=== PATIENT | female | born 1985 | race Caucasian/White ===

== ENCOUNTER 2016-08-13 20:50 | Emergency (ER) | payer OTHER ==
[~2016-08-13] VITALS: Ht 157.5 cm; Wt 88.5 kg
[2016-08-13 21:25] LABS: ABSOLUTE BASOPHIL COUNT 0.1 /CUMM (0.0-0.2); ABSOLUTE EOSINOPHIL COUNT 0.5 /CUMM (0.0-0.7); ABSOLUTE GRANULOCYTE CT 6.5 /CUMM (1.4-6.5); ABSOLUTE LYMPH COUNT 3.4 /CUMM (1.2-3.4); ABSOLUTE MONOCYTE COUNT 0.9 /CUMM (0.10-0.60); BASOPHIL % 0.6 % (0.0-2.0); EOSINOPHIL % 4.8 % (0-5); GRANULOCYTE % 56.9 % (42.2-75.2); HEMATOCRIT 41.8 % (37-47); MEAN CORPUSCULAR HGB 30.5 PG (27.0-31.0); MEAN CORPUSCULAR VOLUME 89.7 FL (81.0-99.0); MEAN PLATELET VOLUME 8.4 FL (7.4-10.4); PLATELET COUNT 257 /CUMM (130-400); RBC DISTRIBUTION WIDTH 12.1 % (11.5-14.5); RED BLOOD CELL CT 4.66 /CUMM (4.20-5.40); WHITE BLOOD CELL COUNT 11.4 /CUMM (4.8-10.8)
--- NOTE | 2016-08-13 22:20 | ED GENERAL ADULT ---
History of Present Illness General Chief Complaint: General Adult Stated Complaint: " AT HOME BP HIGH 169/109" Source: patient, old records Exam Limitations: no limitations Vital Signs & Intake/Output Vital Signs & Intake/Output Vital Signs Date Time Temp Pulse Resp B/P Pulse O2 O2 Flow FiO2 Ox Delivery Rate 08/13 2353 156/70 08/13 2329 97.4 70 19 154/59 97 Room Air 08/13 2317 62 166/72 08/13 2304 68 175/78 08/13 2304 70 170/114 08/13 2300 69 186/120 08/13 2258 97.5 78 18 228/110 08/13 2231 98 Room Air 08/13 2227 78 18 228/110 98 Room Air 08/13 2225 230/112 08/13 2100 97.5 80 18 180/124 97 Room Air ED Intake and Output 08/14 0000 08/13 1200 Intake Total Output Total Balance Patient 195 lb Weight Allergies Coded Allergies: NO KNOWN ALLERGIES (02/10/12) Triage Note: PT TO ED FOR HTN, PALPITATIONS, HEADACHE STARTING TODAY. PT HAS MPGN TYPE 3 AND ALSO HX OF HTN, ON METOPROLOL AND AMPLODIPINE AT HOME, REPORTS SHE FELT OFF ALL DAY TODAY, TOOK BP AT WORK AND THEN AT HOME AND BP WAS 160/109, TOOK MEDS TODAY PRESCRIBED. Triage Nurses Notes Reviewed? yes Onset: Abrupt Duration: day(s): (1), constant Timing: recent history Injury Environment: home Severity: mild, moderate Severity Numbers: 7 No Modifying Factors: none Associated Symptoms: denies HPI: 31 year old female iwth history of Membranoproliferative glomerulonephritis, hypertension presents emergency room complaining of a generalized headache associated with not feeling well since today. She states she had a coworker check her blood pressure and it was high. She is been compliant with her labetalol amlodipine and enalapril during the week however states that occasionally over the weekends she does not take her medication. The nausea vomiting diarrhea chest pain shortness of breath there's been no recent fall or head trauma no vision changes. The symptoms came on while at rest. No history of migraines in the past no fever no chills no rhinorrhea congestion or cough. There are no modifying factors or associated symptoms otherwise she did take her blood pressure medication today. (LISBETH CHEUNG,JAVIER) Past History Travel History Traveled to [place] past 21 day No Medical History Any Pertinent Medical History? see below for history Cardiovascular: hypertension Renal: Membranoproliferative glomerulonephritis Surgical History Surgical History: non-contributory Psychosocial History What is your primary language Malagasy Family History Hx Contributory? No (JAVIER HURTADO) Review of Systems Review of Systems Constitutional: Reports: see HPI. All Other Systems: Reviewed and Negative Comments Review of systems: See HPI, All other systems negative. Constitutional, no chills no fever, no malaise HEENT: No visual changes no sore throat no congestion, Cardiovascular: No chest pain , no palpitation Skin, no rashes, no change in skin Respiratory: No dyspnea no cough no sputum GI: No nausea no vomiting, no diarrhea, : No dysuria Muscle skeletal: No joint pain, no back pain, no neck pain, Neurologic: No numbness, no headache Psych: No stress Heme/endocrine: No bruising no bleeding Immunology: No lymphadenopathy (JAVIER HURTADO) Physical Exam Physical Exam General Appearance: well developed/nourished, no apparent distress, alert, awake Comments: Well-developed well-nourished person in no acute distress HEENT: Normal EENT exam; PERRL, EOMI, no nystagmus. No papilledema HEAD is atraumatic. moist mucous membranes. Neck: Supple, normal range of motion Back: Nontender, no CVA tenderness. Full range of motion Cardiovascular: Regular rate and rhythms no murmurs rubs or gallops, normal JVP Respiratory: Chest nontender.There were no bony deformities, no asymmetry. No respiratory distress. Patient speaking in full complete sentences. Breath sounds clear to auscultation bilaterally: NO W/R/R Abdomen: Soft, nontender nondistended, no appreciable organomegaly. No ascites. Extremity: No edema, full range of motion of extremities Neuro: Alert oriented x3, motor sensory normal. There were no obvious focal neurologic abnormalities. Skin: No appreciable rash on exposed skin, skin is warm and dry. Psych: Mood and affect is normal, memory and judgment is normal. Core Measures ACS in differential dx? No CVA/TIA Diagnosis: No Severe Sepsis Present: No Septic Shock Present: No (JAVIER HURTADO) Progress Differential Diagnoses I considered the following diagnoses in my evaluation of the patient: Acute kidney injury hypertensive urgency emergency, electrolyte abnormality acute AL obligations PVCs SVT tension headache Plan of Care: Orders Procedure Date/time Status Add-on Test (ER Only) 08/13 2211 Active URINE 08/13 2153 Complete URINALYSIS 08/13 2151 Complete TROPONIN LEVEL 08/13 2101 Complete COMPREHENSIVE METABOLIC PANEL 08/13 2101 Complete CBC WITHOUT DIFFERENTIAL 08/13 2101 Complete EKG 08/13 2101 Active Laboratory Tests 08/13/162153: Urine Color YEL, Urine Clarity CLEAR, Urine pH 6.0, Ur Specific Clarence 1.025, Urine Protein 100 H, Urine Ketones NEG, Urine Nitrite NEG, Urine Bilirubin NEG, Urine Urobilinogen 0.2, Ur Leukocyte Esterase NEG, Ur Microscopic SEDIMENT EXAMINED, Urine WBC 1-3 H, Ur Epithelial Cells MOD H, Urine Hemoglobin NEG, Urine Glucose NEG, Urine Test NEGATIVE 08/13/162106: Anion Gap 9, Estimated GFR 52 L, BUN/Creatinine Ratio 20.0, Glucose 87, Calcium 9.9, Total Bilirubin 0.4, AST 28, ALT 39, Alkaline Phosphatase 68, Troponin I < 0.01, Total Protein 6.7, Albumin 3.8, Globulin 2.9, Albumin/Globulin Ratio 1.3, CBC w Diff NO MAN DIFF REQ, RBC 4.66, MCV 89.7, MCH 30.5, RDW 12.1, MPV 8.4, Gran % 56.9, Lymphocytes % 29.7, Monocytes % 8.0, Eosinophils % 4.8, Basophils % 0.6, Absolute Granulocytes 6.5, Absolute Lymphocytes 3.4, Absolute Monocytes 0.9 H, Absolute Eosinophils 0.5, Absolute Basophils 0.1, PUBS MCHC 34.0 Labs were ordered from triage patient states kidney function is at baseline labetalol 20 mg IV ordered case discussed with Dr. Moeller After the patient was medicated with labetalol her symptoms including her headache began to improve blood pressure is responded discussed with her need to purchase a home blood pressure cuff to check her blood pressures at home and need for close follow-up with her primary care physician as well as her test cell technician tomorrow, advised return anytime sooner if symptoms redevelop or she has any other concerns answered all of her questions she feels comfortable with this plan (JAVIER HURTADO) Initial ED EKG: nsr at 71, no acute st seg changes, normal axis (JAVIER HURTADO) Departure Departure Time of Disposition: 2333 Disposition: HOME OR SELF CARE Condition: Stable Clinical Impression Primary Impression: HTN (hypertension) Referrals: SALINAS AVERY MD (PCP/Family) Additional Instructions: Follow-up with your primary care physician tomorrow as well as your test cell technician as you may need adjustment in your blood pressure medication. Check her blood pressure at home with a home blood pressure cuff regularly-(once in the morning and once at evening.) Return anytime sooner if your symptoms recur or your blood pressure at home is continuously elevated or he have any other concerns Departure Forms: Customer Survey General Discharge Information (JAVIER HURTADO) PA/[employer]ATION [employer] Co-Sign Statement Statement: ED Attending supervision documentation- [] I saw and evaluated the patient. I have also reviewed all the pertinent lab results and diagnostic results. I agree with the findings and the plan of care as documented in the PA's/[employer] IN[employer]ST[employer]ATION [employer]'s documentation. [X] I have reviewed the ED Record and agree with the PA's/[employer]'s documentation. [] Additions or exceptions (if any) to the PAs/[employer] IN[employer]ST[employer]ATION [employer]'s note and plan are summarized below: [] (MITCH LAND,TANISHA) Critical Care Note Critical Care Note Critical Care Time: non-applicable (JAVIER HURTADO) ED Attending Observation Initial Observation Note: I have seen and personally examined KAREN BATRES on 08/14/16 at 0023. I agree with the current emergency department documentation. The disposition (admission or discharge) is uncertain at this time, she needs a period of observation for the following reason(s): The ED Nurse caring for this patient has been personally informed as to what the patient is being observed for. (JAVIER HURTADO)
[2016-08-13 23:53] VITALS: BP 156/70
== END 2016-08-13 23:58 ==
LOC: ERH 20:50
PROVIDERS: Emergency Medicine
DX: I10 Essential (primary) hypertension (principal)
CPT/HCPCS: 81001; 81025; 93005; 93010; 96374